=== PATIENT | female | born 1985 | race Caucasian/White ===

== ENCOUNTER 2017-05-12 20:38 | Emergency (ER) | payer OTHER ==
[~2017-05-12] VITALS: Ht 160 cm; Wt 97.5 kg
[~2017-05-12 20:38] MED LIST: METFORMIN HCL500 MG PO; NORCO 5-325 TA1 EACH PO; PRENA1 CHEW TA1.4 MG PO
== END 2017-05-12 22:54 | disposition home or self-care (01) ==
LOC: ED 20:38
DX: K29.60 Other gastritis without bleeding (principal); F17.200 Nicotine dependence, unspecified, uncomplicated
CPT/HCPCS: 99283